=== PATIENT | female | born 1955 | race Caucasian/White ===

== ENCOUNTER → 2024-02-25 | Day surgery (SDC) | payer MEDICARE, MEDICAID ==
[~2024-02-25] VITALS: Ht 162.6 cm; Wt 62.6 kg
[~2024-02-25] MED LIST: ACET-2502 PO; BUPIVACAINE HCL/PF 0.5% (5MG/ML) 10ML ONE; COLLAGEN PO; DICL75TA5 PO; FENTANYL CITRATE/PF 50MCG/ML 2ML VIAL ONE; GLUC-237 PO; GLYCOPYRROLATE 0.2 MG/ML 2ML VIAL ONE; LABETALOL 5MG/ML 4ML INJ IV PRN; MEPERIDINE HCL/PF 25MG/ML CPJ IV PRN; MIDAZOLAM HCL 2 MG/2 ML VIAL ONE; MULT-1203 PO; ONDANSETRON HCL 4MG/2ML INJ IV PRN; PROPOFOL 200MG/20ML VIAL IV ONE; SKIN ADHESIVE 0.7 GM EA TOP ONE
[2024-02-25] MEDS: LACTATED RINGERS 1,000 ML IV SCH (06:36)
[2024-02-25] MEDS: HYDROMORPHONE HCL/PF 2MG/ML CPJ IV PRN (09:18)
[2024-02-25 09:57] VITALS: BP 144/78; PULSE 48; RESP 17
== END | disposition home or self-care (01) ==
LOC: OR 05:28
PROVIDERS: ATTEND Surgery
DX: K40.90 Unilateral inguinal hernia, without obstruction or gangrene, not specified as recurrent (principal); E78.00 Pure hypercholesterolemia, unspecified; I10 Essential (primary) hypertension; K21.9 Gastro-esophageal reflux disease without esophagitis; Z90.711 Acquired absence of uterus with remaining cervical stump; Z98.890 Other specified postprocedural states; Z79.899 Other long term (current) drug therapy; Z88.5 Allergy status to narcotic agent
CPT/HCPCS: 49505; J3010; J3490 ×2; J2250; J2704; J1170; A4217 ×2; Z7610 ×22; C1781